=== PATIENT | male | born 1985 | race Caucasian/White ===

== ENCOUNTER → 2024-05-27 | Outpatient (CLI) | payer BC ==
[2024-05-27 14:00] VITALS: BP 135/88; PULSE 84; RESP 16; TEMP 98.2
--- NOTE | 2024-05-27 14:55 | P.SLEEP ---
History of Present Illness DATE: 05/27/2024 CONSULTATION/NEW PATIENT EVALUATION HISTORY OF PRESENT ILLNESS/SLEEP-WAKE EVALUATION: 39-year-old gentleman had b een evaluated in the sleep center for possible obstructive sleep apnea hypopnea syndrome. SLEEP SCHEDULE: Usually sleep schedule from 10:30 PM to 6:30 AM on weekdays and from 11 PM to 7 AM on weekend. FALLING ASLEEP: Sometimes patient has difficulties with falling asleep, although no TV in bedroom. DURING SLEEP: Patient sleeps in different positions. Patient snores and wakes up from sleep 5 times. Positive history of restless leg symptoms and heartburn. No history of hypnogogical hallucinations, sleep paralysis, or cataplexy. DURING THE DAY/WAKE STATE: In the morning patient wake up tired. [place] sleepiness scale is 0. Patient does not take naps. PAST MEDICAL HISTORY: Hypertension, hyperlipidemia, depression. PAST SURGICAL HISTORY: Tonsillectomy, hernia repair. MEDICATIONS: Please see below. SOCIAL HISTORY: Please see below. FAMILY HISTORY: Hypertension, diabetes, snoring, restless legs, sinus problems. REVIEW OF SYSTEMS: Snoring, multiple awakenings from sleep. No fevers. No double vision. No recent chest pain. No shortness of breath. No abdominal pain. No bleeding episodes. No blood in urine. No seizure episodes. PHYSICAL EXAMINATION: GENERAL: A pleasant patient without any distress. VITAL SIGNS: Please see below, weight 265 pounds. HEENT: PERRLA, EOMI. Evaluation of oropharynx showed tongue protrudes midline, low position of soft palate Mallampati 4. NECK: Supple. No JVD. Thyroid is not palpable. 17-1/4 inches in circumference. LUNGS: Clear to percussion and to auscultation. Good air exchange. No wheezing or rhonchi. HEART: S1, S2 regular. No murmurs, gallops or rubs. ABDOMEN: Soft and nontender. Bowel sounds are present. No organomegaly appreciated. EXTREMITIES: No clubbing or cyanosis. [employer] HEAD: Awake, alert, and oriented x3. Cranial nerves 2 to 7 intact. There is no fasciculation or atrophy noted. No focal deficits observed. ASSESSMENT: 1. Snoring, multiple awakenings from sleep, extremely low position of soft palate Mallampati 4, wide neck 17-1/4 inches in circumference. Obstructive sleep apnea hypopnea syndrome. 2. Episodes of difficulties to initiate sleep, psychophysiological insomnia. 3. History of depression. 4. Hypertension. 5 hyperlipidemia. 6 . Status post tonsillectomy. 7. Status post hernia repair. 8. Mild obesity by BMI 36.9. PLAN: 1. Polysomnography for evaluation of patient's breathing during sleep. Patient had home sleep apnea test 2 years ago in another institution. 2. Following plan after reading sleep study 3. Preferable position during sleep on the side. 4. No driving if patient feels any sleepiness. Patient is aware of civil and criminal liability for unsafe driving. 5. Sleep hygiene with regular sleep time for at least 7.5-8 hours. 6. Watching and losing weight. Thank you very much for referring this patient for consultation. Sincerely, David Andre MD, PhD, FAASM. Diplomat of [place] [employer], Sleep Medicine Board by [place] [employer] [place] [employer] [facility] [place] cc: Misael Pandey MD Past Medical History Past Medical History: Hyperlipidemia, Hypertension History of Any Multi-Drug Resistant Organisms: None Reported Past Surgical History: Hernia Repair Additional Past Surgical History / Comment(s): tonsilectomy Smoking Status: Never smoker Past Alcohol Use History: Occasional Past Drug Use History: None Reported - Past Family History Father Family Medical History: Diabetes Mellitus, Hyperlipidemia, Hypertension Additional Family Medical History / Comment(s): snoring Mother Family Medical History: Hyperlipidemia, Hypertension Additional Family Medical History / Comment(s): restless legs, sinus headaches Medications and Allergies Home Medications Medication Instructions Recorded Confirmed Type Atorvastatin Calcium 40 mg PO DAILY 05/27/24 05/27/24 History Venlafaxine HCl ER [Effexor Xr] 150 mg PO DAILY 05/27/24 05/27/24 History lisinopriL [Prinivil] 20 mg PO DAILY 05/27/24 05/27/24 History Physical Exam Vitals: Vital Signs Temp Pulse Resp BP Pulse Ox 05/27/24 13:59 98.2 F 84 16 135/88 99 Intake and Output 05/26/24 05/27/24 05/27/24 22:59 06:59 14:59 Other: Weight 120.202 kg Sleep Note - Sleep Data ESS Total: 0 - Sleep Note Sleep Note: Temperature: 98.2 F Pulse Rate: 84 Respiratory Rate: 16 Blood Pressure: 135/88 SpO2: 99 Height: 5 ft 11 in Weight: 120.202 kg BMI: Neck Circumference: 17.2
== END ==
LOC: 3 N SLEEP 13:39
PROVIDERS: ATTEND Internal Medicine
DX: G47.33 Obstructive sleep apnea (adult) (pediatric) (principal); F51.04 Psychophysiologic insomnia; I10 Essential (primary) hypertension; E78.5 Hyperlipidemia, unspecified; E66.9 Obesity, unspecified; F32.A Depression, unspecified; Z98.890 Other specified postprocedural states; Z90.89 Acquired absence of other organs; Z68.36 Body mass index [BMI] 36.0-36.9, adult; Z79.899 Other long term (current) drug therapy
CPT/HCPCS: 99211

== ENCOUNTER → 2025-01-10 | Outpatient (CLI) | payer BC ==
--- NOTE | 2025-01-10 15:34 | US ---
EXAMINATION TYPE: US arterial LE single level DATE OF EXAM: 01/10/2025 3:20 PM COMPARISONS: None. CLINICAL INDICATION: Male, 39 years old with history of R20.9 UNSPECIFIED DISTURBANCES OF SKIN SENSAT ION; Cold extremities and tingling x couple months TECHNIQUE: Systolic pressures were taken of the upper and lower extremity arteries with ankle-brachia l indices and toe brachial indices calculated bilaterally. History of: Smoker: No Hypertension: Yes Diabetic: No Hyperlipidemia: Yes TIA/CVA: No Previous Vascular Surgery: No W[place]: No Vascular Ulcers: No Claudication: No Gangrene: No FINDINGS: Doppler Waveforms: Right: Multiphasic Left: Multiphasic Brachial Artery systolic pressure: Right: 115 Left: 117 Posterior Tibial artery systolic pressure: Right: 137 Left: 144 Dorsalis Pedis artery systolic pressure: Right: 136 Left: 142 Ankle-Brachial Indices: Right: 1.17 Left: 1.23 IMPRESSION: TITO: Right: Normal 0.9 - 1.4, Recommendation: None Left: Normal 0.9 - 1.4, Recommendation: None [facility], , 01/10/2025 3:32 PM
== END | disposition home or self-care (01) ==
LOC: RADUSWWP 14:56
PROVIDERS: ATTEND Pediatrics
DX: R20.9 Unspecified disturbances of skin sensation (principal); I10 Essential (primary) hypertension; E78.5 Hyperlipidemia, unspecified
CPT/HCPCS: 93922